=== PATIENT | female | born 1955 | race Caucasian/White ===

== ENCOUNTER 2018-04-18 07:56 | Observation (INO) | payer OTHER ==
[~2018-04-18] VITALS: Ht 160 cm; Wt 55.1 kg
[~2018-04-18 07:56] MED LIST: CELEXA10 MG PO; INSULIN PUMP; LAMICTAL100 MG; NORCO 10-325 T1 EACH PO; SIMVASTATIN20 MG PO; SYNTHROID50 MCG PO; TRAZODONE HCL50 MG PO
[2018-04-18] MEDS ORDERED: METOCLOPRAMIDE HCL 10 MG/2ML VIAL IV ONE (09:00)
[2018-04-18 09:08] LABS: BASOPHILS % 0.1 % (0.0-1.0); EOSINOPHILS % 0.4 % (0.0-6.0); HEMATOCRIT 35.7 % (34.2-44.1); HEMOGLOBIN 11.6 g/dL (12.0-16.0); LYMPHOCYTES # (AUTO) 0.9 (1.0-3.2); LYMPHOCYTES % 11.7 % (18.0-39.1); MEAN CORPUSCULAR HEMOGLOBIN 27.5 pg (28-32); MEAN CORPUSCULAR HGB CONC 32.5 g/dL (31-35); MEAN CORPUSCULAR VOLUME 84.6 fL (81-99); MONOCYTES # (AUTO) 0.3 (0.2-0.8); MONOCYTES % 4.2 % (4.4-11.3); NEUTROPHILS # (AUTO) 6.2 (2.1-6.9); NEUTROPHILS % 83.3 % (38.7-80.0); PLATELET COUNT 259 x10e3/uL (140-360); RED BLOOD COUNT 4.22 x10e6/uL (3.6-5.1); RED CELL DISTRIBUTION WIDTH 15.7 % (11.7-14.4)
[2018-04-18 09:14] LABS: AMPHETAMINES SCREEN,URINE NEGATIVE (NEGATIVE); BENZODIAZEPINES SCREEN,URINE NEGATIVE (NEGATIVE); BILIRUBIN,URINE NEGATIVE (NEGATIVE); CLARITY,URINE CLEAR (CLEAR); COLOR,URINE YELLOW (YELLOW); KETONES,URINE NEGATIVE (NEGATIVE); LEUKOCYTE ESTERASE ,URINE 1+ (NEGATIVE); NITRITE,URINE NEGATIVE (NEGATIVE); PHENCYCLIDINE SCREEN,URINE NEGATIVE (NEGATIVE); PROTEIN,URINE DIPSTICK NEGATIVE (NEGATIVE); URINE UROBILINOGEN 0.2 mg/dL (0.2 - 1)
[2018-04-18 09:30] LABS: EPITHELIAL CELLS,URINE RARE /LPF; TRANSITIONAL EPI CELLS,URINE FEW
--- NOTE | 2018-04-18 10:00 | Diagnostic Imaging Report ---
EXAMINATION: Head CT without contrast. HISTORY:Headache and altered mental status. COMPARISON:None. TECHNIQUE: Multidetector axial images were obtained from the foramen magnum to the vertex without contrast. The images were reconstructed using brain and bone algorithms. Thin section brain images were reformatted into coronal and sagittal planes. Intravenous contrast: None IMAGE QUALITY: Acceptable. FINDINGS: Skull/scalp: No lytic or blastic. lesions. No surgical changes. Parenchyma: Nonspecific few, scattered supratentorial white matter hypodensity are likely related to small vessel ischemic changes. No acute hemorrhage, mass or acute major vascular territorial infarct. Arteries: Atherosclerotic calcification in bilateral carotid siphon. Dural sinuses: No abnormal density suggestive of thrombosis. Ventricles: No hydrocephalus or displacement. Extra-axial spaces: No abnormal density. Brain volume: Mild generalized cerebral volume loss. Craniocervical junction: No mass, Chiari malformation, or basilar invagination. Sella: No mass. Paranasal/mastoid sinuses: Partial opacification of right mastoid air cells. IMPRESSION: No acute intracranial abnormality. Mild generalized cerebral volume loss and mild supratentorial white matter microvascular ischemic changes. Signed by: Dr. Citlalli Worthington M.D. on 04/18/2018 9:56 AM
[2018-04-18 10:06] LABS: ALANINE AMINOTRANSFERASE 14 IU/L (0-55); ALBUMIN 4.2 g/dL (3.5-5.0); ALBUMIN/GLOBULIN RATIO 1.6 (0.8-2.0); ALKALINE PHOSPHATASE 66 IU/L (40-150); ANION GAP 13.2 mmol/L (8-16); BLOOD UREA NITROGEN 8 mg/dL (7-26); BUN/CREATININE RATIO 10 (6-25); CALCIUM 9.5 mg/dL (8.4-10.2); CARBON DIOXIDE 26 mmol/L (22-29); CHLORIDE 104 mmol/L (98-107); CREATINE KINASE 124 IU/L (29-168); CREATININE, SERUM 0.82 mg/dL (0.57-1.11); EST GLOMERULAR FILTRATION RATE > 60 ML/MIN (60-); GLUCOSE 95 mg/dL (74-118); POTASSIUM 4.2 mmol/L (3.5-5.1); SODIUM 139 mmol/L (136-145)
[2018-04-18] MEDS ORDERED: ASPIRIN 325 MG TAB EC PO STA (10:43)
[2018-04-18 12:14] VITALS: BP 149/59
[2018-04-18 12:20] VITALS: BP 149/59
[2018-04-18 12:27] VITALS: BP 166/72
[2018-04-18 15:34] VITALS: BP 148/67
--- NOTE | 2018-04-18 16:55 | Consultation ---
DATE OF CONSULTATION: April 18, 2018 HISTORY OF PRESENT ILLNESS: Ms. Morfin is a 63-year-old, [id number] woman with past medical history significant for hyperlipidemia, diabetes mellitus type 1 treated with insulin pump, and tobacco use, who presented to the emergency center at [facility] on the morning of April 18, 2018, with confusion. At approximately 0500 on April 18, 2018, the patient's awoke to find the patient confused. Patient's reports she could not tell him her name, could not tell him the names of her dogs, could not tell him about their weekend plans, etc. Ms. Morfin has experienced similar symptoms in the past associated with a low serum glucose. Therefore, her gave her a glass of orange juice to drink. However, the patient's symptoms had not improved after a few minutes. Fingerstick blood glucose was obtained and found to be 257. Neither Ms. Morfin nor her endorse a visual field cut or other impairment, facial droop, weakness, numbness, or dizziness associated with the above symptoms. The patient and her do report mild dysarthria and expressive aphasia, headache, and nausea associated with confusion. When the patient's symptoms did not improve after drinking a glass of orange juice, Ms. Morfin was brought to the emergency center at [facility] for further evaluation of her symptoms. Upon admission to the emergency center, the patient's blood pressure was 190/89 mmHg with a pulse of 58 beats per minute. Her neurological examination was documented as being nonfocal. A CT of the brain without contrast was performed in the emergency center and did not show evidence of recent large territorial ischemia, hemorrhage, mass, or mass effect. Ms. Morfin was admitted to [facility] under observation status for further evaluation and treatment of her symptoms. As stated above, Ms. Morfin has experienced episodic confusion in the past, generally in association with a low serum glucose. Her symptoms often resolve within a few minutes of drinking a glass of orange juice or eating a piece of candy. REVIEW OF SYSTEMS: Nausea, confusion, dysarthria, aphasia, impairment of balance and gait, headache. Otherwise, the 12-point review of systems is negative. PAST MEDICAL HISTORY: Hyperlipidemia, diabetes mellitus type 1, depression, degenerative disk disease of the lumbosacral spine. PAST SURGICAL HISTORY: Appendectomy, right ankle surgery, left wrist surgery, C5-C6 fusion. PAST HOSPITALIZATIONS: Surgeries/procedures as listed, childbirth once. FAMILY HISTORY: The patient's paternal grandparents are . Their medical histories are unknown. The patient's maternal grandfather is . His medical history is unknown. The patient's maternal grandmother from complications of Alzheimer's disease. Ms. Morfin's father is . He had coronary artery disease, kidney disease, and Alzheimer's disease. Multiple relatives on her father's side of the family had Alzheimer's disease. Ms. Morfin's mother is from lung cancer. Two of the patient's maternal aunts had breast cancer. Ms. Morfin has a sister and a brother. Both are alive and healthy. The patient has 1 daughter who is alive and healthy. SOCIAL HISTORY: Patient is . She graduated high school and attended some college. 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 The patient does report current tobacco use. She has smoked 1/2 pack of cigarettes per day for the past 45-plus years. Ms. Morfin reports occasional alcohol use. She does not report current or prior recreational drug use. HOME MEDICATIONS: A complete list of the patient's home medications is unavailable at this time. Ms. Morfin reports taking simvastatin dose unknown by mouth daily, Celexa dose unknown by mouth daily, oxycodone 5 per 325 mg by mouth every 4 to 6 hours as needed for back pain, and a multivitamin 1 tablet by mouth daily. Patient has an insulin pump. ALLERGIES: NO KNOWN DRUG ALLERGIES. NO KNOWN FOOD ALLERGIES. NO KNOWN ALLERGY TO LATEX. NO KNOWN ALLERGIES TO IODINE OR OTHER CONTRAST MATERIAL. PHYSICAL EXAMINATION VITAL SIGNS: Height 63 inches, weight 120 pounds. BMI 21.3 kg per meter squared. Blood pressure 166/72 mmHg. Pulse 62 beats per minute. Respiratory rate 18 breaths per minute. Oxygen saturation 99% on room air. GENERAL: The patient is awake and alert, does not appear distressed. HEENT: Normocephalic, atraumatic. Pupils are equal, round and reactive to light. Moist mucous membranes. NECK: Supple. No appreciable thyromegaly. No appreciable carotid bruits. CARDIOVASCULAR: S1, S2, regular rate and rhythm. No murmurs, rubs, or gallops. RESPIRATORY: Faint expiratory wheezes are heard throughout all lung isaacs. EXTREMITIES: The skin is warm and dry. No clubbing, cyanosis, or edema. The posterior tibial and dorsalis pedis pulses are 1+ and symmetric. SKIN: No rashes or lesions. NEUROLOGIC EXAMINATION MEMORY/ATTENTION: The patient is awake and alert, oriented to person, place, time, and situation. CRANIAL NERVES: Cranial nerve I: Not tested. Cranial nerves II, III, IV, and : Pupils are equal and round, react briskly to light (from 4 mm to 2 mm). Extraocular movements intact. No nystagmus. Cranial nerve V: Sensation to light touch and pinprick is intact in the bilateral V1 through V3 distributions. Strength of the temporalis and masseter muscles is within normal limits. Cranial nerve VII: The face is symmetric as are all facial movements. Strength is within normal limits. Cranial nerve VIII: Hearing is intact to finger rub bilaterally. Cranial nerves IX and X: The soft palate elevates equally and symmetrically. Cranial nerve XI: Normal strength of the bilateral sternocleidomastoid and trapezius muscles. Cranial nerve XII: The tongue protrudes midline and moves symmetrically from side to side. STRENGTH: Bulk is normal. Strength is 5/5 in the bilateral deltoids, biceps, triceps, wrist flexors and extensors, finger flexors and extensors, intrinsic hand muscles, hip flexors, knee flexors and extensors, ankle dorsiflexion and plantar flexion, and intrinsic foot muscles. Tone is normal. DTRs: Deep tendon reflexes are 2+ and symmetric at the triceps, biceps, brachioradialis, and patellas. Deep tendon reflexes are 1+ and symmetric at the Achilles. Plantar responses are flexor bilaterally. SENSATION: Sensation is intact to light touch and pinprick in both arms and both legs. CEREBELLAR: Atwvsu-xwnz-bmuymp and heel-flower movements are intact without dysmetria or other impairment. GAIT: Deferred. SPEECH: Spontaneous speech is normal without appreciable dysarthria or aphasia. Repetition is intact. Naming is intact. INVOLUNTARY MOVEMENTS: None. PRONATOR DRIFT: None. LABORATORY DATA: Sodium 139, potassium 4.2, chloride 104, carbon dioxide 26, anion gap 13.2, BUN 8, creatinine 0.82, estimated GFR greater than 60. LDE-ua-qitpeeadzs ratio 10. Glucose 95, calcium 9.5, total bilirubin 0.3, AST 23, ALT 14, alkaline phosphatase 66, total protein 6.9, albumin 4.2, globulin 2.7, ehmtuom-mo-nyyyfasj ratio 1.6, creatine kinase 124, CK-MB 2.10, troponin I less than 0.001. Ammonia 151. CBC with differential and platelets reveals a white blood cell count of 7.46 with 83.3% neutrophils, 11.7% lymphocytes, 4.2% monocytes, 0.4% eosinophils, and 0.1% basophils. The hemoglobin and hematocrit are 11.6 and 35.7, respectively. The platelet count is 259. Urinalysis is significant for trace blood, 1+ leukocyte esterase, rare epithelials cells, and no bacteria. A urine drug screen was unremarkable. DIAGNOSTIC STUDIES 1. EKG, 04/18/2018: Sinus bradycardia at 55 beats per minute. 2. CT of the brain without contrast, 04/18/2018: On my review, there is no evidence of recent large territorial ischemia, hemorrhage, mass, or mass effect. 3. MRI brain without contrast, 04/18/2018: The final report is pending. On my review, there is no evidence of acute ischemia, hemorrhage, mass, or mass effect. There is mild diffuse cerebral atrophy, appropriate for age. There are findings compatible with chronic small vessel ischemic disease supratentorially and infratentorially. ASSESSMENT AND PLAN: Ms. Morfin is a 63-year-old, [id number] woman with multiple vascular risk factors admitted to [facility] with a probable transient ischemic attack of the posterior circulation. At present, her neurological examination is nonfocal. Her laboratory data and other diagnostic studies have been reviewed and are documented above. RECOMMENDATIONS 1. Lipid panel and hemoglobin A1c. 2. Echocardiogram. 3. Bilateral carotid artery ultrasound with Doppler. 4. Aspirin 325 mg by mouth daily for stroke prophylaxis. 5. Allow permissive hypertension for 24 to 48 hours following a TIA/stroke. The patient's goal blood pressure is 160 to 200 mmHg systolic and 60 to 100 mmHg diastolic. 6. Follow up the results of the lipid panel. Prior electronic medical record indicates the patient was taking simvastatin 20 mg by mouth at bedtime daily. Treatment with this medication will be resumed. 7. Follow up the results of the hemoglobin A1c. Patient has an insulin pump. Tight glycemic control is recommended while the patient is in the hospital. Fingerstick blood glucoses will be evaluated before every meal and at bedtime. 8. GI prophylaxis with Pepcid 20 mg by mouth twice daily before meals. DVT prophylaxis with Lovenox 40 mg subcutaneously daily. 9. Speech and physical therapy consultations have been ordered. 10. Smoking cessation counseling was provided to the patient. 11. Defer treatment of the remaining medical comorbidities to the primary and other services. Thank you for this consultation. I will continue to follow this patient while she remains in the hospital. Time spent: 70 minutes. Job#: [id number] MURALI
[2018-04-18] MEDS ORDERED: ENOXAPARIN SOD INJ 40 MG/0.4 ML SYR SC SCH (17:00)
--- NOTE | 2018-04-18 17:52 | Diagnostic Imaging Report ---
Exam: Brain MRI without with IV contrast History: Confusion. Comparison studies: Head CT performed on the same date Technique: Axial DWI, 3-D T1 with axial, coronal and sagittal reformats, axial T2 FLAIR, axial T2*GRE and axial T2 FS. Findings: Scalp: Normal in signal . No masses . Bone marrow: Normal in signal intensity. Extra-axial: No masses or fluid collections. Brain sulci: Appropriate for age. Ventricles: Normal in size . No hydrocephalus . Parenchyma: No mass, hemorrhage or acute ischemia. A few punctate T2 FLAIR hyperintense foci in the supratentorial white matter are nonspecific but most compatible with chronic microvascular ischemic changes. Minimal T2 FLAIR hyperintense foci in the posterior efraín are also nonspecific but may reflect chronic small vessel ischemic changes. Suprasellar region: No abnormalities. Craniocervical junction: No abnormalities. Patent foramen magnum. No Chiari one malformation. Vessels: Normal flow-voids in the arteries and sinuses. Incidental findings: Moderate nonspecific reactive T2 hyperintense inflammatory changes in the right mastoid and right petrous apex with sclerotic changes in the right as seen on the previous CT compatible with sequela of chronic inflammation. Minimal nonspecific T2 hyperintense inflammatory changes in the left mastoids and left petrous apex. IMPRESSION: 1. No acute intracranial abnormality. 2. Minimal chronic microvascular ischemic changes. 3. Nonspecific inflammatory changes in the right greater than left mastoids and petrous apices. Signed by: Dr. Dario Nieto M.D. on 04/18/2018 8:07 PM
[2018-04-18] MEDS: FAMOTIDINE 20 MG TAB PO SCH (18:39)
[2018-04-18 19:10] VITALS: BP 158/68
[2018-04-18] MEDS ORDERED: SIMVASTATIN 20 MG TAB PO SCH (21:00)
[2018-04-19] VITALS (7 sets, daily range): BP systolic 138–188; BP diastolic 62–79
[2018-04-19] MEDS: FAMOTIDINE 20 MG TAB PO SCH (07:35)
[2018-04-19] MEDS ORDERED: ASPIRIN 325 MG TAB EC PO SCH (09:00)
[2018-04-19] MEDS ORDERED: OXYCODONE-ACET1 EAC1 PO (13:36)
--- NOTE | 2018-04-19 16:59 | Diagnostic Imaging Report ---
History:Altered mental status, Comparison studies: None Technique: Axial images were obtained from the thoracic inlet. Coronal and sagittal images reconstructed from the axial data. Intravenous contrast: 100 cc of Omnipaque 300. Findings: Aortic arch and major vessels: Punctate non-stenosing calcified plaques. Otherwise no abnormalities. Common carotid arteries: Patent. No abnormalities. Right internal carotid artery: At least 50% stenosis at the bulb due to an irregular minimally calcified plaque along the posterior wall of the ICA. Otherwise, the cervical and intracranial segments are patent. Left internal carotid artery: Non-stenosing punctate calcified plaques about the bulb. The cervical segment is patent. Mildly stenosing circumferential calcifications are seen in the cavernous and supraclinoid segments. The A1 and M1 segments are patent. Right vertebral artery: Patent. No abnormalities. Left vertebral artery: Patent. No abnormalities. Basilar artery: Patent. No abnormalities. Posterior cerebral arteries: Patent. No abnormalities. Anatomical variants: Acom: Patent . Pcoms: Patent. Vertebral arteries: Left dominant IMPRESSION: 1. Approximately 50% stenosis at the right carotid bulb due to an irregular minimally calcified plaque. Non-stenosing punctate calcifications on the left. 2. Mildly stenosing calcifications in the left carotid siphon 3. Otherwise, no additional abnormalities Signed by: Dr. Lavelle Palacios M.D. on 04/19/2018 4:55 PM
[2018-04-19] MEDS ORDERED: NORVASC5 MG PO (17:22)
[2018-04-19] MEDS ORDERED: ASPIR 8181 MG (17:27)
[2018-04-19] MEDS ORDERED: IOPAMIDOL 370 MG/ML 200 ML INFUS..BTL INJ ONE ×2 (19:47→19:48)
[2018-04-19] MEDS ORDERED: SODIUM CHLORIDE 0.9% 100 ML ONE (19:48)
[2018-04-19] MEDS ORDERED: SIMVASTATIN 20 MG TAB PO SCH (21:00)
== END 2018-04-19 17:45 | disposition home or self-care (01) ==
LOC: ER 07:56 → ERHOLD 10:44 → IMCU 12:04
DX: G45.9 Transient cerebral ischemic attack, unspecified (principal); E10.9 Type 1 diabetes mellitus without complications; E78.5 Hyperlipidemia, unspecified; Z96.41 Presence of insulin pump (external) (internal); Z79.4 Long term (current) use of insulin; Z72.0 Tobacco use
CPT/HCPCS: 36415; 70450; 70496; 70498; 70551; 80053; 80061; 80307; 81001; 82140; 82550; 82553; 82948; 83036; 84484; 85025; 93005; 93306; 93880; 97161; 99284; G0378 ×2; G8978; G8979; G8980; J1650; J2765; J7050; Q9967

== ENCOUNTER → 2019-07-09 | Outpatient (CLI) | payer BC ==
[~2019-07-09] MED LIST changes: +ASPIR 8181 MG; +NORVASC5 MG PO; +OXYCODONE-ACET1 EAC1 PO
== END ==
LOC: CARD 13:42
PROVIDERS: ATTEND Internal Medicine
DX: I65.21 Occlusion and stenosis of right carotid artery (principal)
CPT/HCPCS: 93880